=== PATIENT | male | born 1945 | race Caucasian/White ===

== ENCOUNTER 2023-11-27 08:18 | Inpatient (IN) | payer MEDICARE ==
[~2023-11-27] VITALS: Ht 182.9 cm; Wt 73.8 kg
[2023-11-27] VITALS (29 sets, daily range): BP systolic 142–178; BP diastolic 65–89
--- NOTE | 2023-11-27 08:18 | NUR ---
PATIENT ARRIVED TO ER VIA EMS. PATIENT AWAKE, ALERT AND STABLE. NO DISTRESS NOTED. PHYSICIAN NOTIFIED.
[2023-11-27] MEDS ORDERED: METFORMIN HCL1000 MG PO (08:58)
[2023-11-27] MEDS ORDERED: JARDIANCE25 MG PO (08:59)
[2023-11-27] MEDS ORDERED: PRAVASTATIN40 MG PO (09:00)
[2023-11-27] MEDS ORDERED: LISINOPRIL10 MG PO (09:00)
[2023-11-27] MEDS ORDERED: LEVOTHYROXIN75 MC1 PO (09:00)
--- NOTE | 2023-11-27 09:05 | NUR ---
PATIENT AWAKE, ALERT, AND STABLE. NO DISTRESS NOTED. WILL CONTINUE TO MONITOR.
[2023-11-27 09:30] LABS: HEMATOCRIT 43.5 % (39.0-50.0); HEMOGLOBIN 14.7 g/dl (14.0-18.0); IMMATURE GRANULOCYTES 0.4 % (0.0-5.0); MEAN CELL VOLUME 81.2 fL CALC (80.0-100.0); MEAN CORPUSCULAR HGB 27.4 pG CALC (26.0-32.0); MEAN CORPUSCULAR HGB CONC 33.8 g/dL CAL (32.0-36.0); MONO% 6.4 % (2-13); NEUT# 21.26 thou/uL (1.82-7.42); NEUT% 87.2 % (42-76); RED BLOOD COUNT 5.36 mill/uL (4.70-6.10); RED CELL DISTRI WIDTH 14.7 % (11.5-15.5)
[2023-11-27 09:49] LABS: ALBUMIN 3.6 g/dL (3.2-5.0); BILIRUBIN, TOTAL 0.6 mg/dL (0.2-1.3); TOTAL PROTEIN 6.5 g/dL (6.3-8.2)
[2023-11-27 09:59] LABS: CREATININE 6.5 mg/dL (0.7-1.3); POTASSIUM 6.6 mmol/l (3.5-5.1)
--- NOTE | 2023-11-27 10:00 | NUR ---
PT REPPRT RECIEVED FROM MORNING NURSE. CARE IS ACCEPTED. PTS VSS. AT BEDSIDE. PT DENIES ANY NEEDS AT THIS TIME.
[2023-11-27] MEDS ORDERED: CALCIUM GLUCONATE 2 GM in SODIUM CHLORIDE 0.9% 100 ML IV ONE (10:10)
[2023-11-27] MEDS ORDERED: DEXTROSE 10% 500 ML BAG IV ONE (10:10)
[2023-11-27] MEDS ORDERED: INSULIN LISPRO 100 UNITS/ML ML IV ONE (10:10)
[2023-11-27] MEDS ORDERED: SODIUM CHLORIDE 0.9% 1,000 ML IV ONE (10:15)
--- NOTE | 2023-11-27 10:20 | NUR ---
PT HAS A SKIN TEAR TO HIS LEFTT ELBOW REGION THAT IS IN RESULTS FROM HIS FALL TODAY. SKIN TEAR IS CLEAN WITH SALINE AND DUODERM APPLIED TO TEAR. PT TOLERATED WELL AND DENIES ANY NEEDS AT THIS TIME.
--- NOTE | 2023-11-27 11:30 | NUR ---
STRAIGHT CATH PERFORMED ON PATIENT. PT TOLERATED PROCEDURE WELL. 350ML OF URINE COLLECTED. URINE SAMPLE SENT DOWN TO LAB.
[2023-11-27 12:08] LABS: URINE BILIRUBIN - DIPSTICK Negative (NEGATIVE); URINE BLOOD DIPSTICK Moderate (NEGATIVE); URINE GLUCOSE - DIPSTICK 100 mg/dL (NEGATIVE); URINE KETONE Negative (NEGATIVE); URINE LEUK ESTERASE Negative (NEGATIVE); URINE NITRITE - DIPSTICK Negative (Negative); URINE PROTEIN - DIPSTICK Negative (NEG-TRACE); URINE UROBILINOGEN - DIPSTICK 0.2 E.U./dL (0.2)
[2023-11-27 12:17] LABS: URINE COLOR Yellow
[2023-11-27 12:22] LABS: URINE WBC 0-2 WBC/hpf (0-5)
--- NOTE | 2023-11-27 12:22 | NUR ---
PT RESTING IN BED. VSS. NO ACUTE DISTRESS NOTED. AT BEDSIDE. PT EDUACTED ON PLAN OF CARE AND PLAN TO PLACE ALVAREZ CATH. PT STATS UNDERSTANDING.
[2023-11-27 12:23] LABS: URINE SQUAMOUS EPITHELIAL CELL RARE EPI/hpf (0-FEW)
[2023-11-27 12:24] LABS: URINE AMORPH SEDIMENT FEW hpf (NONE-FER)
--- NOTE | 2023-11-27 13:00 | NUR ---
PT RESTING IN BED. VSS. HAS LEFT BEDSIDE. PT IS EDUACTED ON CONTINUED WAIT TIME. PT STATES UNDERSTANDING. PT DENIES ANY NEEDS AT [facility].
--- NOTE | 2023-11-27 14:00 | NUR ---
PT RESTING IN BED. VSS. AT BEDSIDE. PT EDUACTED ON CONTINUED WAIT TIME.
--- NOTE | 2023-11-27 14:48 | NUR ---
PT RSTING IN BED. VSS. NO ACUTE DISTRESS NOTED.
[2023-11-27 15:01] LABS: CREATININE 5.7 mg/dL (0.7-1.3); POTASSIUM 5.9 mmol/l (3.5-5.1)
--- NOTE | 2023-11-27 15:34 | NUR ---
MD IN ROOM WITH PATIENT TO DISCUSS BEING ADMITTED. PT STATES UNDERSTANDIG. PTS VSS. NO ACUTE DISTRESS NOTED.
[2023-11-27] MEDS ORDERED: MAGNESIUM HYDROXIDE 30 ML UDC PO PRN (15:40)
[2023-11-27] MEDS ORDERED: SODIUM CHLORIDE 0.9% 1,000 ML IV PRN (15:40)
[2023-11-27] MEDS ORDERED: ACETAMINOPHEN 325 MG/TAB PO PRN (15:40)
[2023-11-27] MEDS ORDERED: SODIUM ZIRCONIUM CYCLOSILICATE 10 GM PAK PO SCH (16:00)
--- NOTE | 2023-11-27 16:01 | NUR ---
PT LEAVING ER FOR ULTRASOUND OF KIDNEY.
--- NOTE | 2023-11-27 16:15 | NUR ---
REPORT CALL[facility] PT BEING TAKEN UP VIA BED.
--- NOTE | 2023-11-27 16:36 | NUR ---
250ML OF URINE COLLECTED VIA ALVAREZ.
--- NOTE | 2023-11-27 16:40 | NUR ---
PT ARRIVED TO THE UNIT VIA STRETCHER WITH STAFF. IV SITES ARE FREE FROM REDNESS OR EDEMA. HR IS REG,PULSES ARE STRONG X4,ABD IS SOFT WITH ACTIVE BS. BREATH SOUNDS ARE CLEAR, BILATERALLY, ALVAREZ DRAINING YELLOW URINE. CONTINUE TO OBSERVE AND MONITOR.
[2023-11-27] MEDS ORDERED: INSULIN LISPRO 100 UNITS/ML ML SC SCH (17:00)
[2023-11-27] MEDS ORDERED: SODIUM BICARBONATE 150 ML in DEXTROSE 5% 850 ML IV SCH (17:00)
[2023-11-27] MEDS ORDERED: PIPERACILLIN Sodium-Tazobactam 2.25 GM in SODIUM CHLORIDE 0.9% 50 ML IV SCH (18:00)
[2023-11-27 19:13] LABS: CREATININE 4.7 mg/dL (0.7-1.3); POTASSIUM 5.8 mmol/l (3.5-5.1)
--- NOTE | 2023-11-27 19:56 | NUR ---
pt blood sugar was 165 @1945 when checked
--- NOTE | 2023-11-27 20:00 | NUR ---
PATIENT AWAKE ALERT AND ORIENTEDX3. COLOR IS PALE. IVF D5W WITH NABICARB PAENT AND INFUSING VIA RAC SITE AT 100CC/HR. SITE IS HEALTHY AT THIS TIME. SALINE LOCK TO LAC INTACT. ALVAREZ CATH PATENT AND DRAINING JUDITH URINE. LUNGS ARE CLEAR. ABD SOFT WITH ACTIVE BS. LAST BM WAS YESTERDAY. NO PERIPHERAL EDEMA NOTED. PULSES ARE PALPABLE.SAFETY PRECAUTIONS REINFORCED. CALL LIGHT IN REACH.WILL CONT TO MONITOR.
--- NOTE | 2023-11-28 04:00 | NUR ---
PATIENT RESTING IN BED WITH EYES CLOSED. RESPS ARE EVEN AND UNLABORED. ALVAREZ PATENT AND DRAINING JUDITH URINE. IVF ORDERED. CALL LIGHT IN REACH. WILL CONT TO MONITOR.
[2023-11-28 04:33] VITALS: BP 146/71
[2023-11-28] MEDS ORDERED: LEVOTHYROXINE SODIUM 75 MCG/TAB PO SCH (06:00)
[2023-11-28 06:29] LABS: EOS% 0.1 % (0-8); HEMATOCRIT 37.9 % (39.0-50.0); HEMOGLOBIN 13.2 g/dl (14.0-18.0); IMMATURE GRANULOCYTES 0.5 % (0.0-5.0); LYMPH% 8.6 % (15-41); MEAN CELL VOLUME 79.6 fL CALC (80.0-100.0); MEAN CORPUSCULAR HGB 27.7 pG CALC (26.0-32.0); MEAN CORPUSCULAR HGB CONC 34.8 g/dL CAL (32.0-36.0); MONO% 7.6 % (2-13); NEUT# 13.21 thou/uL (1.82-7.42); NEUT% 83.2 % (42-76); RED BLOOD COUNT 4.76 mill/uL (4.70-6.10); RED CELL DISTRI WIDTH 14.7 % (11.5-15.5)
[2023-11-28 06:38] LABS: BILIRUBIN, TOTAL 0.4 mg/dL (0.2-1.3); MAGNESIUM 2.2 mg/dL (1.6-2.3)
[2023-11-28 06:55] LABS: ALBUMIN 2.7 g/dL (3.2-5.0); CREATININE 2.9 mg/dL (0.7-1.3); POTASSIUM 4.4 mmol/l (3.5-5.1); TOTAL PROTEIN 4.9 g/dL (6.3-8.2)
[2023-11-28 07:09] VITALS: BP 155/72
--- NOTE | 2023-11-28 07:30 | NUR ---
SHIFT CHANGE REPORT, PT AWAKE ALERT AND ORIENTED RESTING IN BED, NO C/O DISCOMFORT, IVF INFUSING, STATES HE DOES NOT WANT TO GET OOB TODAY BUT WILL GET OUT IN AM WITH PHYSICAL THERAPIST. INFORMED OF BENEFITES OF GETTING OOB BUT REPEATED HE WILL IN AM.
--- NOTE | 2023-11-28 07:32 | NUR ---
RECEIVED CALL FROM LAB WITH CXRITICAL LAB RESULT OF [id number]. TRENDING DOWN AT THIS TIME. WILL CONT TO MONITOR.
--- NOTE | 2023-11-28 07:33 | NUR ---
PATIENT RESTING IN BED AT THIS TIME-EYES CLOSED AND RESPS ARE EVEN AND UNLABORED. ALVAREZ PATENT AND DRAINING JUDITH URINE. IVF PATENT AND INFUSING RAC SITE AT 100CC/HR. CALL LIGHT IN REACH. WILL CONT TO MANUEL
--- NOTE | 2023-11-28 12:00 | NUR ---
ASSISTED WITH SETTING UP MEAL, CONDITION STABLE.
[2023-11-28 15:20] VITALS: BP 148/67
[2023-11-28 15:25] LABS: POTASSIUM 3.8 mmol/l (3.5-5.1)
[2023-11-28 15:33] LABS: CREATININE 1.9 mg/dL (0.7-1.3)
--- NOTE | 2023-11-28 16:00 | NUR ---
RESTING IN BED, NO NEW COMPLAINS, ALL NEEDS MET/ADDRESSED.
[2023-11-28 18:29] VITALS: BP 143/62
[2023-11-28] MEDS ORDERED: SODIUM CHLORIDE 0.9% 1,000 ML IV SCH (20:20)
[2023-11-28 23:28] VITALS: BP 110/59
[2023-11-29 04:20] VITALS: BP 162/71
[2023-11-29 05:25] VITALS: BP 162/71
[2023-11-29 06:27] LABS: EOS% 0.3 % (0-8); HEMATOCRIT 33.1 % (39.0-50.0); HEMOGLOBIN 11.3 g/dl (14.0-18.0); IMMATURE GRANULOCYTES 0.8 % (0.0-5.0); LYMPH% 20.7 % (15-41); MEAN CELL VOLUME 81.3 fL CALC (80.0-100.0); MEAN CORPUSCULAR HGB 27.8 pG CALC (26.0-32.0); MEAN CORPUSCULAR HGB CONC 34.1 g/dL CAL (32.0-36.0); MONO% 7.5 % (2-13); NEUT# 7.51 thou/uL (1.82-7.42); NEUT% 70.7 % (42-76); RED BLOOD COUNT 4.07 mill/uL (4.70-6.10); RED CELL DISTRI WIDTH 14.5 % (11.5-15.5)
[2023-11-29 06:49] LABS: ALBUMIN 2.4 g/dL (3.2-5.0); ALKALINE PHOSPHATASE 62 u/l (38-126); ANION GAP 7 (6-22 (CALC)); BILIRUBIN, TOTAL 0.5 mg/dL (0.2-1.3); BUN/CREATININE RATIO 31 (12-20 (CALC)); CARBON DIOXIDE 33 mmol/l (22-30); CHLORIDE 102 mmol/l (95-108); CREATININE 1.3 mg/dL (0.7-1.3); GFR FOR AFR.AMER. > 60 ML/MIN (>=60 (CALC)); GFR OTHER RACES 53 ML/MIN (>=60 (CALC)); LIPASE 295 u/l (23-300); MAGNESIUM 1.8 mg/dL (1.6-2.3); POTASSIUM 3.7 mmol/l (3.5-5.1); SGOT/AST 21 u/l (19-48); SODIUM 137 mmol/l (137-146); TOTAL PROTEIN 4.7 g/dL (6.3-8.2)
[2023-11-29 06:51] LABS: BUN 40 mg/dL (8-23)
--- NOTE | 2023-11-29 07:15 | NUR ---
SHIFT CHANGE REPORT, PT AWAKE ALERT AND ORIENTED RESTING IN BED, STATES HE FEELS MUCH BETTER TODAY AND LOOKING FORWARD TO DO PHYSICAL THERAPY TODAY, IVF INFUSING, TELE MONITOR IN PLACE, CALL WHATLEY IN REACH AND BED LOCKED IN LOWEST POSITION.
[2023-11-29 07:32] VITALS: BP 138/70
[2023-11-29] MEDS ORDERED: FINASTERIDE 5 MG/TAB PO SCH (09:00)
[2023-11-29] MEDS ORDERED: TAMSULOSIN HCL 0.4 MG CAP PO SCH (09:00)
[2023-11-29 11:05] VITALS: BP 145/72
[2023-11-29 15:11] VITALS: BP 156/76
[2023-11-29 20:27] VITALS: BP 146/74
--- NOTE | 2023-11-29 21:35 | NUR ---
Assessment complete. Patient alert and oriented x3, hard of hearing. Urinary cath patent, to gravity; clear yan urine noted. Denies pain at this time. No distress noted. Call light within reach.
[2023-11-30] VITALS (11 sets, daily range): BP systolic 143–185; BP diastolic 44–84
[2023-11-30 05:22] LABS: HEMATOCRIT 32.2 % (39.0-50.0); HEMOGLOBIN 10.4 g/dl (14.0-18.0); IMMATURE GRANULOCYTES 1.5 % (0.0-5.0); LYMPH% 19.7 % (15-41); MEAN CELL VOLUME 85.2 fL CALC (80.0-100.0); MEAN CORPUSCULAR HGB 27.5 pG CALC (26.0-32.0); MEAN CORPUSCULAR HGB CONC 32.3 g/dL CAL (32.0-36.0); MONO% 6.5 % (2-13); NEUT# 7.73 thou/uL (1.82-7.42); NEUT% 71.3 % (42-76); RED BLOOD COUNT 3.78 mill/uL (4.70-6.10); RED CELL DISTRI WIDTH 14.8 % (11.5-15.5)
[2023-11-30 05:50] LABS: ALBUMIN 2.4 g/dL (3.2-5.0); ALKALINE PHOSPHATASE 52 u/l (38-126); ANION GAP 5 (6-22 (CALC)); BILIRUBIN, TOTAL 0.3 mg/dL (0.2-1.3); CARBON DIOXIDE 30 mmol/l (22-30); CHLORIDE 104 mmol/l (95-108); CREATININE 0.9 mg/dL (0.7-1.3); GFR FOR AFR.AMER. > 60 ML/MIN (>=60 (CALC)); GFR OTHER RACES > 60 ML/MIN (>=60 (CALC)); SGOT/AST 21 u/l (19-48); SODIUM 134 mmol/l (137-146); TOTAL PROTEIN 4.6 g/dL (6.3-8.2)
[2023-11-30 05:52] LABS: BUN 19 mg/dL (8-23); BUN/CREATININE RATIO 21 (12-20 (CALC))
--- NOTE | 2023-11-30 08:00 | NUR ---
PATIENT ALERT AND ORINTED X3, BREATHING UNLABORED AND EVEN, NO VISUAL SIGNS OF DISTRESS OR DISCOMFORT, IV SITES WAS CLEAN AND INTACT RAC RUNNING ON NS AT 200. TELE MONITORS INTACT AND WORKING, GLUCOSE WAS 188, 1 UNIT WAS ADMINISTERED, ALVAREZ OBSERVED, URINE JUDITH COLOR AND, DENIED HAVING ANY PAIN AT THE MOMENT, DENIED NEEDING ANYTHING AT THE MOMENT, STATED HE WANTED APPLE JUICE, MEDICATION AND PLAN OF CARE WAS REVIEWED,CALL LIGHT WITHIN REACH, VERBALIZED UNDERSTANDING ON HOW TO USE, BED IN LOWEST, WILL CONTINUE TO ROUND,
[2023-11-30] MEDS ORDERED: TAMSULOSIN HCL0.4 MG PO (10:59)
[2023-11-30] MEDS ORDERED: FINASTERIDE5 MG PO (11:00)
--- NOTE | 2023-11-30 11:50 | NUR ---
PATIENT GLUCOSE 232, 3 UNITS GIVEN
--- NOTE | 2023-11-30 12:00 | NUR ---
PATIENT ALERT AND ORINETED X3, IN SEMI PENN POSTION, ROOM AIR, NO VISUAL SIGNS OF DISCOMFORT OR DISTRESS, PATIENT DENIED ANY PAIN AT THE MOMENT, IV SITE CLEAN AND INTACT RUNNING WITH NS AT 100ML, BREATHING UNLABORED AND EVEN, IN ROON, CALL LIGHT WITHIN REACH, VERBALIZED UNDERSTANDING ON HOW TO USE, BED IN LOWEST POSTION, WILL CONTINUE TO MONITOR,TELE MONITOR ON AND INTACT
[2023-11-30] MEDS ORDERED: DOCUSATE CALCIUM 240 MG/CAP PO SCH (13:30)
[2023-11-30] MEDS ORDERED: Polyethylene Glycol 3350 17 GM/PKT PO PRN (13:30)
--- NOTE | 2023-11-30 16:00 | NUR ---
PATIENT ALERT AND OREINTED X3, ROOM AIR, BREATHING UNLABORED AND EVEN, IV SITE CLEAN AND INTACT RUNNING WITH NS AT 125ML, PATIENT DENIED ANY PAIN AT THE MOMENT, DENIED NEEDING ANYTHING AT THIS TIME, STATES HE IS OKAY, ANTONIO OBSERVED WITH URINE OUTPUT IN GOOD STANDING, CALL LIGHT WITHIN REACH, VERALIZED UNDERSTANDING ON HOW TO USE, BED IN LOWEST POSTION, PERSONAL ITEMS ARE WITHIN REACH, WILL CONTINUE TO MONITOR
--- NOTE | 2023-11-30 19:35 | NUR ---
PATIENT RESTING IN BED WITH HOB ELEVATED. ASSESSMENT COMPLETE. ALERT AND ABLE TO MAKE NEEDS KNOWN. NO DISTRESS NOTED. NO COMPLAINTS VOICED. ALVAREZ PATENT DRAINING CLEAR YELLOW URINE. BED REMAINS IN LOW POSITION. CALL WHATLEY IN REACH. BED ALARM ACTIVE.
[2023-11-30] MEDS ORDERED: LABETALOL HCL 20 MG/ 4 ML CARTRG IV PRN (21:00)
[2023-12-01] VITALS (8 sets, daily range): BP systolic 147–187; BP diastolic 73–90
--- NOTE | 2023-12-01 00:45 | NUR ---
PATIENT RESTING IN BED. NO DISTRESS NOTED. NO COMPLAINTS OF PAIN. PATIENT REMOVED IV SITE TO LT ARM. CATHETER INTACT. BED REMAINS IN LOW POSITION. CALL WHATLEY IN REACH. BED ALARM ACTIVE FOR SAFETY.
--- NOTE | 2023-12-01 03:44 | NUR ---
PATIENT REMAINS TURKEY PICKER WHATLEY FREQUENTLY. ABLE TO MAKE NEEDS KOWN. DENIES NEEDING ANYTHING AT THIS TIME. BED REMAINS IN LOW POSITION. CALL WHATLEY IN REACH.
[2023-12-01 05:05] LABS: BASO% 0.1 % (0-3); EOS% 1.7 % (0-8); HEMATOCRIT 32.2 % (39.0-50.0); HEMOGLOBIN 10.6 g/dl (14.0-18.0); IMMATURE GRANULOCYTES 1.2 % (0.0-5.0); LYMPH% 16.9 % (15-41); MEAN CELL VOLUME 84.5 fL CALC (80.0-100.0); MEAN CORPUSCULAR HGB 27.8 pG CALC (26.0-32.0); MEAN CORPUSCULAR HGB CONC 32.9 g/dL CAL (32.0-36.0); MONO% 6.1 % (2-13); NEUT# 9.15 thou/uL (1.82-7.42); RED BLOOD COUNT 3.81 mill/uL (4.70-6.10); RED CELL DISTRI WIDTH 14.9 % (11.5-15.5)
[2023-12-01 05:39] LABS: ALBUMIN 2.5 g/dL (3.2-5.0); ALKALINE PHOSPHATASE 61 u/l (38-126); ANION GAP 7 (6-22 (CALC)); BILIRUBIN, TOTAL 0.3 mg/dL (0.2-1.3); BUN 15 mg/dL (8-23); BUN/CREATININE RATIO 19 (12-20 (CALC)); CARBON DIOXIDE 27 mmol/l (22-30); CHLORIDE 103 mmol/l (95-108); CREATININE 0.8 mg/dL (0.7-1.3); GFR FOR AFR.AMER. > 60 ML/MIN (>=60 (CALC)); GFR OTHER RACES > 60 ML/MIN (>=60 (CALC)); MAGNESIUM 1.5 mg/dL (1.6-2.3); SGOT/AST 24 u/l (19-48); SODIUM 132 mmol/l (137-146)
--- NOTE | 2023-12-01 07:10 | NUR ---
REPORT RECEIVED FROM LOGAN MARIE
--- NOTE | 2023-12-01 08:50 | NUR ---
PT RESTING IN SEMI FOWLERS POSITION,A&O X3;PT DENIES ANY CURRENT PAIN OR DISCOMFORTS, PAIN SCALE AND REPORTING EDUCATED;ASSESSMENT COMPLETED;RESPIRATIONS EVEN AND UNLABORED ON RA;TELE MONITORING IN PLACE;ALVAREZ CATHETER PATENT DRAINING TO GRAVITY WITH EASE;IV SITE PATENT;ACCUCHECK 184, PT COVERED WITH SLIDING SCALE INSULIN PER ORDER;MIRLAX PROVIDED TO ASSIST WITH BOWEL CARE;PT DENIES ANY ADDITIONAL NEEDS AND IS ENCOURAGED TO CALL FOR ASSISTANCE IF NEEDED;FALL PRECAUTIONS IN PLACE WITH BED IN THE LOWEST POSITION AND CALL LIGHT IN REACH;FREQUENT ROUNDS MADE.
--- NOTE | 2023-12-01 11:30 | NUR ---
PT RESTING IN SEMI FOWLERS POSITION;RESPIRATIONS EVEN AND UNLABORED ON RA;PT DENIES ANY CURRENT PAIN OR NEEDS;TELE MONITORING IN PLACE;IV SITE AND ALVAREZ CATHETER PATENT;ACCUCHECK 211, PT COVERED WITH SLIDING SCALE INSULIN PER ORDER;PT DENIES ANY ADDITIONAL QUESTIONS OR NEEDS;FALL PRECAUTIONS REMAIN IN PLACE WITH BED IN THE LOWEST POSITION AND CALL LIGHT IN REACH;FREQUENT ROUNDS MADE.
--- NOTE | 2023-12-01 12:34 | NUR ---
AT BEDSIDE DISCUSSING POC WITH PT.
[2023-12-01] MEDS ORDERED: MAGNESIUM SULFATE HEPTAHYDRATE 50 ML IV SCH (13:00)
[2023-12-01] MEDS ORDERED: LACTULOSE 20 GM/30 ML UDC PO SCH (13:00)
--- NOTE | 2023-12-01 15:45 | NUR ---
PT RESTING IN SEMI FOWLERS POSIITON;RESPIRATIONS REMAIN EVEN AND UNLABORED ON RA;PT DENIES ANY CURRENT PAIN OR NEEDS;TELE MONITORING IN PLACE;IV SITE PATENT;ALVAREZ CATHETER DRAINING TO GRAVITY WITH EASE;PT DENIES ANY ADDITIONAL NEEDS AND IS ENCOURAGED TO CALL FOR ASSISTANCE IF NEEDED;WAITING FOR PT TO HAVE A BM FOR D/C TO REHAB;CALL LIGHT IN REACH;FREQUENT ROUNDS MADE.
[2023-12-02 00:57] VITALS: BP 164/85
[2023-12-02 04:40] VITALS: BP 179/86
[2023-12-02 06:11] VITALS: BP 163/80
--- NOTE | 2023-12-02 07:05 | NUR ---
REPORT RECEIVED FROM LOGAN HERNANDEZ
[2023-12-02 07:30] VITALS: BP 166/87
--- NOTE | 2023-12-02 08:10 | NUR ---
PT RESTING IN SEMI FOWLERS POSITION,A&O X3 WITH NOATAK NOTED;PT ASSISTED TO RECLINER WITH X2 PERSON ASSIST;PT DENIES ANY CURRENT PAIN OR DISCOMFORTS,PAIN SCALE AND REPORTING EDUCATED;RESPIRATIONS EVEN AND UNLABORED ON RA;ACTIVE BOWEL SOUNDS, NO BM NOTED;ALVAREZ CATHETER PATENT, DRAINING CLEAR/YELLOW URINE WITH EASE;TELE MONITORING IN PLACE;IV SITE TO RAC PATENT;ACCUCHECK 251, PT COVERED WITH SLIDING SCALE INSULIN PER ORDER;PT DENIES ANY ADDITIONAL NEEDS AND IS ENCOURAGED TO CALL FOR ASSISTANCE IF NEEDED;FALL PRECAUTIONS IN PLACE WITH CALL LIGHT IN REACH;FREQUENT ROUNDS MADE.
[2023-12-02] MEDS ORDERED: MAGNESIUM SULFATE HEPTAHYDRATE 50 ML IV SCH (09:30)
[2023-12-02 10:34] VITALS: BP 154/89
--- NOTE | 2023-12-02 10:47 | NUR ---
AT BEDSIDE DISCUSSING POC WITH PT
[2023-12-02] MEDS ORDERED: MAGNESIUM CITRATE 296 ML/BTL PO SCH (11:30)
--- NOTE | 2023-12-02 11:30 | NUR ---
PT REMAINS OOB RESTING IN RECLINER;RESPIRATIONS EVEN AND UNLABORED ON RA;PT DENIES ANY CURRENT PAIN OR NEEDS;TELE MONTIORING IN PLACE;IV SITE PATENT;ALVAREZ CATHETER DRAINING WITH EASE;PT MEDICATED WITH MIRLAX AND MAG CITRATE TO HELP ASSIST WITH BOWEL MOVEMENT;ACCUCHECK 287, PT COVERED WITH SLIDING SCALE INSULIN PER ORDER;PT DENIES ANY ADDITIONAL NEEDS AND IS ENCOURAGED TO CALL FOR ASSISTANCE IF NEEDED;FALL PRECAUTIONS REMAIN IN PLACE WITH CALL LIGHT IN REACH;FREQUENT ROUNDS MADE.
[2023-12-02 11:48] LABS: BASO% 0.2 % (0-3); EOS% 1.6 % (0-8); HEMATOCRIT 33.8 % (39.0-50.0); HEMOGLOBIN 10.9 g/dl (14.0-18.0); IMMATURE GRANULOCYTES 2.1 % (0.0-5.0); LYMPH% 13.4 % (15-41); MEAN CELL VOLUME 85.1 fL CALC (80.0-100.0); MEAN CORPUSCULAR HGB 27.5 pG CALC (26.0-32.0); MEAN CORPUSCULAR HGB CONC 32.2 g/dL CAL (32.0-36.0); MONO% 5.5 % (2-13); NEUT# 11.38 thou/uL (1.82-7.42); NEUT% 77.2 % (42-76); RED BLOOD COUNT 3.97 mill/uL (4.70-6.10); RED CELL DISTRI WIDTH 14.7 % (11.5-15.5)
[2023-12-02] MEDS ORDERED: Polyethylene Glycol 3350 17 GM/PKT PO SCH (12:00)
[2023-12-02 12:11] LABS: ALKALINE PHOSPHATASE 62 u/l (38-126); BILIRUBIN, TOTAL 0.2 mg/dL (0.2-1.3); BUN 23 mg/dL (8-23); BUN/CREATININE RATIO 27 (12-20 (CALC)); CARBON DIOXIDE 29 mmol/l (22-30); CHLORIDE 99 mmol/l (95-108); CREATININE 0.8 mg/dL (0.7-1.3); GFR FOR AFR.AMER. > 60 ML/MIN (>=60 (CALC)); GFR OTHER RACES > 60 ML/MIN (>=60 (CALC)); SGOT/AST 35 u/l (19-48); SODIUM 132 mmol/l (137-146); TOTAL PROTEIN 5.6 g/dL (6.3-8.2)
[2023-12-02 12:13] LABS: ANION GAP 9 (6-22 (CALC)); POTASSIUM 5.1 mmol/l (3.5-5.1)
--- NOTE | 2023-12-02 13:56 | NUR ---
XRAY AT BEDSIDE
--- NOTE | 2023-12-02 15:50 | NUR ---
PT OOB ON BEDSIDE COMMODE ATTEMPTING TO HAVE A BOWEL MOVEMENT;RESPIRATIONS EVEN AND UNLABORED ON RA;PT DENIES ANY CURRENT PAIN OR DISCOMFORTS;TELE MONITORING IN PLACE;IV SITE PATENT;ALVAREZ DRAINING TO GRAVITY WITH EASE;PT DENIES ANY ADDITIONAL NEEDS AND IS ENCOURAGED TO CALL FOR ASSISTANCE IF NEEDED;FALL PRECAUTIONS REMAIN IN PLACE WITH CALL LIGHT IN REACH;FREQUENT ROUNDS MADE.
[2023-12-02] MEDS ORDERED: BISACODYL 10 MG SUPP RE SCH (16:00)
--- NOTE | 2023-12-02 16:50 | NUR ---
PT HAD XL LOOSE/BROWN BM AND WAS ASISSTED BACK TO BED WITH X3 ASISST. NOTIFIED.
[2023-12-02 17:34] LABS: ANION GAP 11 (6-22 (CALC)); BUN 24 mg/dL (8-23); BUN/CREATININE RATIO 25 (12-20 (CALC)); CARBON DIOXIDE 29 mmol/l (22-30); CHLORIDE 98 mmol/l (95-108); GFR FOR AFR.AMER. > 60 ML/MIN (>=60 (CALC)); GFR OTHER RACES > 60 ML/MIN (>=60 (CALC)); POTASSIUM 4.9 mmol/l (3.5-5.1); SODIUM 133 mmol/l (137-146)
[2023-12-02 19:21] VITALS: BP 123/65
[2023-12-03 00:09] VITALS: BP 142/74
[2023-12-03 04:33] VITALS: BP 158/76
[2023-12-03 07:24] VITALS: BP 125/68
[2023-12-03 08:14] VITALS: BP 125/68
[2023-12-03 10:25] VITALS: BP 128/65
[2023-12-03 10:43] VITALS: BP 128/65
[2023-12-03] MEDS ORDERED: METOPROLOL TARTRATE 50 MG/TAB PO SCH (13:00)
--- NOTE | 2023-12-03 14:50 | NUR ---
Discharge instructions given. Patient verbalizes understanding of same. Discharged in stable condition [facility]. All belongings sent with pt. IV removed, catheter intact, site WNL.
== END 2023-12-03 14:57 | DRG 683 ==
LOC: ED 08:18 → ED-I 15:20 → ED 15:42 → MS2 15:43
PROVIDERS: Family Medicine; Nurse Practitioner Family; Student in an Organized Health Care Education/Training Program; ADMIT Student in an Organized Health Care Education/Training Program; ATTEND Student in an Organized Health Care Education/Training Program
PROC: 0T9B70Z Drainage of Bladder with Drainage Device, Via Natural or Artificial Opening (ICD-10-PCS; principal; 2023-11-27)
DX: N17.0 Acute kidney failure with tubular necrosis (principal); E87.1 Hypo-osmolality and hyponatremia; E87.20 Acidosis, unspecified; I95.9 Hypotension, unspecified; E86.9 Volume depletion, unspecified; E86.0 Dehydration; D72.829 Elevated white blood cell count, unspecified; E87.5 Hyperkalemia; K59.00 Constipation, unspecified; K86.89 Other specified diseases of pancreas; I10 Essential (primary) hypertension; E11.9 Type 2 diabetes mellitus without complications; N40.0 Benign prostatic hyperplasia without lower urinary tract symptoms; E03.9 Hypothyroidism, unspecified; Z79.84 Long term (current) use of oral hypoglycemic drugs; Z87.442 Personal history of urinary calculi; Z20.822 Contact with and (suspected) exposure to COVID-19
CPT/HCPCS: J3475

== ENCOUNTER 2024-04-09 00:08 | Inpatient (IN) | payer MEDICARE ==
[2024-04-09] VITALS (26 sets, daily range): BP systolic 98–140; BP diastolic 53–71
[~2024-04-09] VITALS: Ht 185.4 cm; Wt 67.1 kg
[~2024-04-09 00:08] MED LIST: ACETAMINOPHEN325 MG PO; AMOXICILLIN500 M2 PO; CLARITHROMYCIN500 MG PO; DULCOLAX10 MG RE; FINASTERIDE5 MG PO; GABAPENTIN100 MG PO; JARDIANCE10 MG PO; JARDIANCE25 MG PO; LEVOTHYROXIN75 MC1 PO; LISINOPRIL10 MG PO; METFORMIN HCL1000 MG PO; MILK OF MAGNES7.75 % PO; MIRALAX17 GM PO; PRAVASTATIN40 MG PO; PROTONIX40 M2 PO; TAMSULOSIN HCL0.4 MG PO
--- NOTE | 2024-04-09 00:15 | NUR ---
PT TO RM 6 VIA EMS
[2024-04-09] MEDS ORDERED: SODIUM CHLORIDE 0.9% 1,000 ML IV ONE (00:30)
[2024-04-09] MEDS ORDERED: TAMSULOSIN0.4 MG PO (00:33)
[2024-04-09] MEDS ORDERED: FIBER TABS625 MG (00:35)
[2024-04-09] MEDS ORDERED: ZESTRIL10 M1 PO (00:35)
[2024-04-09] MEDS ORDERED: PROTONIX40 M2 PO (00:36)
[2024-04-09] MEDS ORDERED: REMERON7.5 MG PO (00:36)
[2024-04-09] MEDS ORDERED: ZOFRAN4 MG/TAB PO (00:37)
[2024-04-09] MEDS ORDERED: STOOL SOFTENER100 M1 PO (00:37)
[2024-04-09] MEDS ORDERED: NOVOLOG FL100 UNIT/M (00:38)
--- NOTE | 2024-04-09 01:15 | NUR ---
PATIENT RESTING IN BED, AT BEDSIDE.
[2024-04-09 01:21] LABS: HEMATOCRIT 36.7 % (39.0-50.0); HEMOGLOBIN 11.4 g/dl (14.0-18.0); IMMATURE GRANULOCYTES 1.7 % (0.0-5.0); MEAN CORPUSCULAR HGB 24.6 pG CALC (26.0-32.0); MEAN CORPUSCULAR HGB CONC 31.1 g/dL CAL (32.0-36.0); PLATELET COUNT 314 thou/uL (130-400); RED BLOOD COUNT 4.63 mill/uL (4.70-6.10)
[2024-04-09 01:27] LABS: MEAN CELL VOLUME 79.3 fL CALC (80.0-100.0)
[2024-04-09 01:28] LABS: MANUAL DIFFERENTIAL YES
[2024-04-09 01:48] LABS: ALBUMIN 3.2 g/dL (3.2-5.0); CREATININE 1.7 mg/dL (0.7-1.3); POTASSIUM 4.1 mmol/l (3.5-5.1); TOTAL PROTEIN 5.9 g/dL (6.3-8.2)
[2024-04-09 01:49] LABS: URINE BILIRUBIN - DIPSTICK Negative (NEGATIVE); URINE BLOOD DIPSTICK Large (NEGATIVE); URINE GLUCOSE - DIPSTICK >=1000 mg/dL (NEGATIVE); URINE KETONE 15 mg/dL (NEGATIVE); URINE NITRITE - DIPSTICK Negative (Negative); URINE PH 5.5 (4.5-8.0); URINE PROTEIN - DIPSTICK 100 mg/dL (NEG-TRACE); URINE SPECIFIC GRAVITY 1.025; URINE UROBILINOGEN - DIPSTICK 0.2 E.U./dL (0.2)
[2024-04-09 01:49] LABS: BILIRUBIN, TOTAL 0.9 mg/dL (0.2-1.3)
[2024-04-09 01:51] LABS: URINE COLOR Yellow; URINE LEUK ESTERASE Large (NEGATIVE)
[2024-04-09 01:51] LABS: BAND 1 % (0-8)
[2024-04-09 02:06] LABS: URINE BACTERIA MANY hpf; URINE MUCUS FEW hpf (NONE-FEW); URINE RBC 25-50 RBC/hpf (0-5); URINE SQUAMOUS EPITHELIAL CELL FEW EPI/hpf (0-FEW); URINE WBC 20-50 WBC/hpf (0-5); URINE YEAST MANY hpf
[2024-04-09] MEDS ORDERED: INSULIN REGULAR (HUMAN) 100 UNIT/ML INJ IV ONE (02:10)
--- NOTE | 2024-04-09 03:00 | NUR ---
PATIENT SLEEPING, RESPIRATIONS EVEN AND UNLABORED. VSS
--- NOTE | 2024-04-09 04:25 | NUR ---
PATIENT NOTIFIED HE WAS ACCEPTED FOR ADMISSION.
--- NOTE | 2024-04-09 04:57 | NUR ---
REPORT GIVEN TO Jessica RAMSEY RN
--- NOTE | 2024-04-09 05:15 | NUR ---
RECEIVED FROM ER, ALERT ORIENTED X3. RESP EVEN AND UNLABORED. SKIN IN POOR CONDITION. LOTS OF DISCOLORED AREAS AND ABRASIONS. TELE CURRENTLY ST 92. DENIES PAIN OR DISCOMFORT. ADMISSION ASSESMENT COMPLETED.
[2024-04-09] MEDS ORDERED: ACETAMINOPHEN 325 MG/TAB PO PRN (05:20)
[2024-04-09] MEDS ORDERED: SODIUM CHLORIDE 0.9% 1,000 ML IV PRN (05:25)
--- NOTE | 2024-04-09 05:27 | NUR ---
PATIENT TRASNPORTED TO MED SURG ROOM 272
[2024-04-09] MEDS ORDERED: DEXTROSE 250 ML IV PRN (05:35)
[2024-04-09] MEDS ORDERED: LEVOTHYROXINE SODIUM 75 MCG/TAB PO SCH (06:00)
[2024-04-09 07:00] LABS: HEMATOCRIT 36.1 % (39.0-50.0); HEMOGLOBIN 11.7 g/dl (14.0-18.0); IMMATURE GRANULOCYTES 1.6 % (0.0-5.0); MEAN CELL VOLUME 76.3 fL CALC (80.0-100.0); MEAN CORPUSCULAR HGB 24.7 pG CALC (26.0-32.0); MEAN CORPUSCULAR HGB CONC 32.4 g/dL CAL (32.0-36.0); PLATELET COUNT 344 thou/uL (130-400); RED BLOOD COUNT 4.73 mill/uL (4.70-6.10)
[2024-04-09] MEDS ORDERED: INSULIN LISPRO 100 UNITS/ML ML SC SCH (07:00)
--- NOTE | 2024-04-09 07:15 | NUR ---
PT LAYING IN BED RESTING WITH HIS EYES CLOSED, AROUSES EASILY TO VERBAL STIMULI, A&O X3, PUPILS PERRL, ABD SOFT AND SLIGHTLY DISTENDED, ACTIVE BOWEL SOUNDS, STRONG RADIAL PULSES, WEAK PEDAL PULSES, 20G LFA IV WITH FLUIDS INFUSING AT PRESCIBED RATE, PT HAS MULTIPLE AREAS ON HIS ARMS, KNEES, AND SIDE OF HIS FACE WITH BRUSING, SKIN TEARS, AND SCRATHCES FROM HIS FALL AT HOME, PT COMPLAINS OF PAIN IN HIS FEET DOES NOT WANT ANYTHING FOR PAIN AT THIS TIME, PT ASSISTED WITH REPOSITIONING. SAFETY MEASURES REINFORCED, CALL WHATLEY WITHIN REACH
[2024-04-09 07:19] LABS: CREATININE 1.8 mg/dL (0.7-1.3); POTASSIUM 3.7 mmol/l (3.5-5.1)
[2024-04-09 07:20] LABS: MAGNESIUM 1.2 mg/dL (1.6-2.3)
[2024-04-09 07:36] LABS: MANUAL DIFFERENTIAL YES
--- NOTE | 2024-04-09 07:45 | NUR ---
pt blood sugar was 143 @0610
[2024-04-09 07:48] LABS: PLATELET ESTIMATE NORMAL
--- NOTE | 2024-04-09 08:05 | NUR ---
PT ASSISTED WITH GETTING SETUP FOR BREAKFAST, PT VERBALIZED NO OTHER NEEDS AT THIS TIME, SAFETY MEASURES REINFORCED, PT REMINDED TO CALL FOR ASSISTANCE, CALL WHATLEY WITHIN REACH
[2024-04-09] MEDS ORDERED: MAGNESIUM SULFATE HEPTAHYDRATE 100 ML IV SCH (09:00)
[2024-04-09] MEDS ORDERED: FINASTERIDE 5 MG/TAB PO SCH (09:00)
[2024-04-09] MEDS ORDERED: PANTOPRAZOLE SODIUM Sesquihydr 40 MG/TAB PO SCH (09:00)
[2024-04-09] MEDS ORDERED: CEFEPIME HYDROCHLORIDE 2 GM in SODIUM CHLORIDE 0.9% 100 ML IV SCH (11:00)
--- NOTE | 2024-04-09 11:03 | NUR ---
pt glucose was 268 @1040
--- NOTE | 2024-04-09 11:16 | NUR ---
nurse jj made aware of pt bp of 100/61 @1045
--- NOTE | 2024-04-09 12:00 | NUR ---
PT ASSISTED WITH GETTING SETUP FOR LUNCH, PT SITTING UP IN THE BED, DENIES ANY NEEDS AT THIS TIME, CALL WHATLEY WITHIN REACH
--- NOTE | 2024-04-09 13:30 | NUR ---
PT ASSISTED WITH 2 PERSON ASSISTANCE TO AMBULATE TO THE WC, PT TO RADIOLOGY VIA WC
--- NOTE | 2024-04-09 14:30 | NUR ---
PT RETURNED TO THE UNIT VIA WC FROM RADIOLOGY, PT ASSISTED WITH AMBULATING BACK TO BED, 1 PERSON ASSISTANCE NEED, PT AMBULATED WITH AN UNSTEADY GAIT, PT REMINDED TO CALL FOR ASSISTANCE, CALL WHATLEY WITHIN REACH
--- NOTE | 2024-04-09 16:35 | NUR ---
pt glucose was 206 @1620
--- NOTE | 2024-04-09 17:55 | NUR ---
PT LAYING IN BED RESTING, NO NEEDS AT THIS TIME, CALL WHATLEY WITHIN REACH
[2024-04-09] MEDS ORDERED: ENOXAPARIN SODIUM 40 MG/0.4 ML SYR SC SCH (21:00)
[2024-04-09] MEDS ORDERED: GABAPENTIN 100 MG/CAP PO SCH (21:00)
--- NOTE | 2024-04-09 23:26 | NUR ---
SCHEDULED IV ABT HUNG ORDERED. PATIENT REQUESTED A SNACK AND PROVIDED. DENIES NEEDING ANYTHING ELSE AT THIS TIME. BED REMAINS IN LOW POSITION. CALL WHATLEY IN REACH.
[2024-04-10] MEDS ORDERED: cefTRIAXone SODIUM 2 GM in SODIUM CHLORIDE 0.9% 100 ML IV SCH
--- NOTE | 2024-04-10 03:23 | NUR ---
PATIENT REMAINS RESTING IN BED. PREFERS TO LAY FLAT IN BED. NO DISTRESS NOTED. NO SIGNS OF PAIN. ALVAREZ REMAINS DRAINING CLEAR YELLOW URINE. BED REMAINS IN LOW POSITION. CALL WHATLEY IN REACH.
[2024-04-10 03:40] VITALS: BP 129/73
[2024-04-10 05:52] LABS: EOS% 0.1 % (0-8); HEMATOCRIT 32.9 % (39.0-50.0); HEMOGLOBIN 10.8 g/dl (14.0-18.0); IMMATURE GRANULOCYTES 0.5 % (0.0-5.0); LYMPH% 3.8 % (15-41); MEAN CELL VOLUME 76.7 fL CALC (80.0-100.0); MEAN CORPUSCULAR HGB 25.2 pG CALC (26.0-32.0); MEAN CORPUSCULAR HGB CONC 32.8 g/dL CAL (32.0-36.0); MONO% 6.1 % (2-13); NEUT# 25.15 thou/uL (1.82-7.42); NEUT% 89.5 % (42-76); RED BLOOD COUNT 4.29 mill/uL (4.70-6.10); RED CELL DISTRI WIDTH 16.2 % (11.5-15.5)
[2024-04-10 06:04] LABS: ALBUMIN 2.4 g/dL (3.2-5.0); BILIRUBIN, TOTAL 0.5 mg/dL (0.2-1.3); CREATININE 1.5 mg/dL (0.7-1.3); MAGNESIUM 2.1 mg/dL (1.6-2.3); POTASSIUM 3.6 mmol/l (3.5-5.1)
[2024-04-10 06:40] VITALS: BP 129/73
--- NOTE | 2024-04-10 07:48 | NUR ---
PATIENT A/O X3; ROOM AIR; BREATHING UNLABORED AND EVEN; DENIED ANY PAIN; DENIED ANYT N/D/V AT THIS TIME; STATES HE SLEPT"FAIR"; NO S/S OF DISTRESS; IV SITE CLEAN AND INTACT RUNNING WITH NS @125; ALVAREZ WORKING WITH NO ISSUES; DENIED NEEDING ANYTHING; CALL LIGHT WITHIN REACH,VERBALIZED UNDERSTANDING ON HOW TO USE, PERSONAL ITEMS WITHIN REACH, BED IN LOWEST POSTION
--- NOTE | 2024-04-10 08:10 | NUR ---
Preliminary blood culture results of 1/4 blood cultures growing gram negative mohsen called to Dr Rasmussen. No new orders at this time.
[2024-04-10 10:33] VITALS: BP 115/60
--- NOTE | 2024-04-10 13:34 | NUR ---
PATIENT A/O X3; ROOM AIR; BREATHING UNLABORED AND EVEN; DENIED ANY PAIN; DENID NEEDING ANYTHING; LAYING IN BED SEMI PENN POSTION; IN ROOM WITH PATIENT; ALVAREZ WORKING WITH NO ISSUES; TELE LEADS ARE ATTACHED WITH NO ISSUES; IV SITE CLEAN AND INTACT RUNNING WITH NS; DENIED NEEDING ANYTHING; MEDICATION REVIWED; CALL LIGHT WITHIN REACH,VERBALIZED UNDERSTANDING ON HOW TO USE,PERSONAL ITEMS WITHIN REACH, BED IN LOWEST POSTION
[2024-04-10 15:53] VITALS: BP 131/72
--- NOTE | 2024-04-10 16:08 | NUR ---
PATIENT A/O X3L ROOM AIR; BREATHING UNLABORED AND EVEN; DENIED ANY PAIN; DENIED ANY N/D/V AT THIS TIME; IV SITE CLEAN AND INTACT RUNNING WITH NS; MEDICATION REVIEWED' ALVAREZ BAG WORKING WITH NO ISSUES; TELE LEADS ARE ATTACHED AND WORKING WITH NO ISSUES; LAYING SEMI PENN IN BED WITH NO ISSUES; CALL LIGHT WITHIN REACH,VERBALIZED UNDERSTANDING ON HOW TO USE, PERSONAL ITEMS WITHIN REACH, BED IN LOWEST POSTION
[2024-04-10 18:26] VITALS: BP 138/68
--- NOTE | 2024-04-10 20:00 | NUR ---
RECEIVED REPORT FROM NURSE MEYER. PATINET RESTING IN BED, PATINET HARD OF HEARING, PLEASANT, IV NS @ 125CC/HR INFUSING WELL ON LFA, ON TELEMETRY, PATIENT DENIES PAIN AT THIS TIME, HAS INDWELLING ALVAREZ CATHETER DRAINING YELLOW CLOUDY URINE, PATINET NOT IN DISTRESS, CALL LIGHT IN REACHED.
[2024-04-10 23:18] VITALS: BP 133/72
--- NOTE | 2024-04-11 | NUR ---
PATINET RSETING IN BED, NOT IN DISTRESS, BRAETHING EVEN UNLABORED, DENIES PAIN AT THSI TIME, CALL LIGHT IN REACHED.
[2024-04-11 03:45] VITALS: BP 154/79
[2024-04-11 04:07] VITALS: BP 154/79
--- NOTE | 2024-04-11 04:26 | NUR ---
PATINET AWAKE, EATING SNACK, BREATHING EVEN UNLABORED NOT IN DISTRESS, CALL LIGHT IN REACHED.
[2024-04-11 05:08] LABS: BASO% 0.1 % (0-3); EOS% 0.7 % (0-8); HEMATOCRIT 31.5 % (39.0-50.0); HEMOGLOBIN 10.5 g/dl (14.0-18.0); IMMATURE GRANULOCYTES 0.4 % (0.0-5.0); LYMPH% 9.4 % (15-41); MEAN CELL VOLUME 76.6 fL CALC (80.0-100.0); MEAN CORPUSCULAR HGB 25.5 pG CALC (26.0-32.0); MEAN CORPUSCULAR HGB CONC 33.3 g/dL CAL (32.0-36.0); MONO% 6.1 % (2-13); NEUT# 13.17 thou/uL (1.82-7.42); NEUT% 83.3 % (42-76); RED BLOOD COUNT 4.11 mill/uL (4.70-6.10); RED CELL DISTRI WIDTH 16.3 % (11.5-15.5)
[2024-04-11 05:09] LABS: ALBUMIN 2.3 g/dL (3.2-5.0); BILIRUBIN, TOTAL 0.4 mg/dL (0.2-1.3); CREATININE 1.1 mg/dL (0.7-1.3); MAGNESIUM 1.9 mg/dL (1.6-2.3); POTASSIUM 3.7 mmol/l (3.5-5.1); TOTAL PROTEIN 4.9 g/dL (6.3-8.2)
[2024-04-11 06:48] VITALS: BP 134/79
--- NOTE | 2024-04-11 08:45 | NUR ---
PATEINT A/O X3; ROOM AIR; BREATHING UNLABORED AND EVEN; DENIED ANY PAIN; DENIED NEEDING ANYTHING; DENIED N/D/V AT THIS TIME; IV SITE CLEAN AND INTACT RUNNING WITH NS @100; ASKED IF WE CAN CHANGE IV SITE PATIENT REFUSED, CHANTEL ANRP WAS NOTFIED; EDUCATED ON THE RISK OF NOT CHANGING IV SITE; TELE LEADS ARE ATTACHED AND WORKING WITH NO ISSUES; ALVAREZ BAG WORKING WITH NO ISSUES; CALL LIGHT WITHIN REACH,VERBALIZED UNDERSTANDING ON HOW TO USE,PERONAL ITEMS WITHIN REACH,BED IN LWOEST POSTION, BED ALARM ACTIVATED
[2024-04-11] MEDS ORDERED: cefTRIAXone SODIUM 2 GM in SODIUM CHLORIDE 0.9% 100 ML IV SCH (09:00)
[2024-04-11] MEDS ORDERED: METOPROLOL TARTRATE 25 MG/TAB PO SCH (09:00)
[2024-04-11 11:06] VITALS: BP 136/81
--- NOTE | 2024-04-11 12:10 | NUR ---
PATEINT A/O X3; ROOM AIR; BREATHING UNLABORED AND EVEN; DENIED ANY PAIN; DENIED ANY N/D/V AT THIS TIME; DENIED NEEDING ANYTHING AT THIS TIME; IN ROOM WITH PATIENT; IV SITE CLEAN AND INTACT RUNNING WITH NS @100; TELE LEADS ARE ATTACHED AND WORKING WITH NO ISSUES; MEDICATION REVIEWED; CALL LIGHT WITHIN REACH,VERBALIZED UNDERSTANDING ON HOW TO USE, PERSONAL ITEMS WITHIN REACH, BED IN LOWEST POSTION; BED ALARM ACTIVATED
--- NOTE | 2024-04-11 15:41 | NUR ---
PATIENT GOT A SKIN TEAR FROM SOFTWARE PACKAGER TAKING OF GUARD FROM IV FOR TAKING A SHOWER; PICTURE IN CHART
--- NOTE | 2024-04-11 16:25 | NUR ---
PATEINT A/O X3; ROOM AIR; BREATHING UNLABORED AND EVEN; DENIED ANY PAIN; DENIED NEEDING ANYTHING; DENIED ANY N/D/V AT THIS TIME; PATIENT LAYING SEMI PENN IN BED; NO S/S OF DISTRESS; TELE LEADS ARE ATTACHED AND WORKING WITH NO ISSUES; PATIENT HAD SHOWER TODAY; MEDICATION WAS REVIWED; IV SITE CLEAN AND INTCAT RUNNING WITH NS; CALL LIGHT WITHIN REACH,VERBALIZED UNDERSTANDING ON HOW TO USE, PERSONAL ITEMS WITHIN REACH, BED IN LOWEST POSTION
[2024-04-11 17:07] VITALS: BP 161/89
[2024-04-11 18:46] VITALS: BP 140/77
[2024-04-12 00:37] VITALS: BP 147/82
[2024-04-12 04:30] VITALS: BP 132/71
[2024-04-12 06:24] LABS: BASO% 0.1 % (0-3); HEMATOCRIT 29.4 % (39.0-50.0); HEMOGLOBIN 9.5 g/dl (14.0-18.0); IMMATURE GRANULOCYTES 1.4 % (0.0-5.0); LYMPH% 15.5 % (15-41); MEAN CELL VOLUME 77.8 fL CALC (80.0-100.0); MEAN CORPUSCULAR HGB 25.1 pG CALC (26.0-32.0); MEAN CORPUSCULAR HGB CONC 32.3 g/dL CAL (32.0-36.0); NEUT# 7.67 thou/uL (1.82-7.42); RED BLOOD COUNT 3.78 mill/uL (4.70-6.10); RED CELL DISTRI WIDTH 16.5 % (11.5-15.5)
[2024-04-12 06:32] LABS: ALBUMIN 2.2 g/dL (3.2-5.0); CREATININE 1.1 mg/dL (0.7-1.3); MAGNESIUM 1.7 mg/dL (1.6-2.3); POTASSIUM 3.9 mmol/l (3.5-5.1); TOTAL PROTEIN 4.6 g/dL (6.3-8.2)
[2024-04-12 06:38] LABS: BILIRUBIN, TOTAL 0.2 mg/dL (0.2-1.3)
[2024-04-12 06:54] VITALS: BP 131/74
--- NOTE | 2024-04-12 08:11 | NUR ---
Pt resting in bed, sitting up ,eating breakfast. Pt requesting medicaine to assist in BM. Physicin notified. No distress, no other complaints.
[2024-04-12] MEDS ORDERED: BISACODYL 10 MG SUPP PR SCH (09:00)
[2024-04-12] MEDS ORDERED: LACTULOSE 20 GM/30 ML UDC PO SCH (09:30)
[2024-04-12 10:59] VITALS: BP 150/75
[2024-04-12] MEDS ORDERED: CEFTRIAXONE2 GM IJ (12:02)
[2024-04-12] MEDS ORDERED: LOPRESSOR25 MG PO (12:11)
--- NOTE | 2024-04-12 14:50 | NUR ---
Discharge instructions given. Patient verbalizes understanding of same. Discharged in stable condition via Wheelchair to *Other with staff. All belongings sent with pt. Tele monitor removed and placed at nurses station.
== END 2024-04-12 14:17 | DRG 872 ==
LOC: ED 00:08 → ED-I 04:10 → ED 04:24 → MS2 04:25
PROVIDERS: Family Medicine; Nurse Practitioner Family; ADMIT Student in an Organized Health Care Education/Training Program; ATTEND Student in an Organized Health Care Education/Training Program
DX: A41.59 Other Gram-negative sepsis (principal); N39.0 Urinary tract infection, site not specified; I47.10 Supraventricular tachycardia, unspecified; N17.9 Acute kidney failure, unspecified; T83.518A Infection and inflammatory reaction due to other urinary catheter, initial encounter; R65.20 Severe sepsis without septic shock; E83.42 Hypomagnesemia; I48.0 Paroxysmal atrial fibrillation; S80.212A Abrasion, left knee, initial encounter; S80.211A Abrasion, right knee, initial encounter; S00.81XA Abrasion of other part of head, initial encounter; S40.022A Contusion of left upper arm, initial encounter; S40.021A Contusion of right upper arm, initial encounter; I10 Essential (primary) hypertension; N40.0 Benign prostatic hyperplasia without lower urinary tract symptoms; E03.9 Hypothyroidism, unspecified; Y84.6 Urinary catheterization as the cause of abnormal reaction of the patient, or of later complication, without mention of misadventure at the time of the procedure; W18.30XA Fall on same level, unspecified, initial encounter; Y92.009 Unspecified place in unspecified non-institutional (private) residence as the place of occurrence of the external cause; Z96.0 Presence of urogenital implants; Z79.84 Long term (current) use of oral hypoglycemic drugs; Z79.4 Long term (current) use of insulin; Z20.822 Contact with and (suspected) exposure to COVID-19
CPT/HCPCS: J0692; J1650; J3475; Q9967

== ENCOUNTER 2024-08-26 08:48 | Observation (INO) | payer MEDICARE ==
[~2024-08-26] VITALS: Ht 182.9 cm; Wt 62.4 kg
[2024-08-26] VITALS (21 sets, daily range): BP systolic 125–156; BP diastolic 71–89
[~2024-08-26 08:48] MED LIST changes: +AMOX/K CLAV875 M1 PO; +BACTRIM DS1 TAB PO; +CEFTRIAXONE2 GM IJ; +FIBER TABS625 MG; +LOPRESSOR25 MG PO; +NOVOLOG FL100 UNIT/M; +REMERON7.5 MG PO; +STOOL SOFTENER100 M1 PO; +TAMSULOSIN0.4 MG PO; +ZESTRIL10 M1 PO; +ZOFRAN4 MG/TAB PO
[2024-08-26] MEDS ORDERED: ONDANSETRON HCl 4 MG/2 ML SDV IV ONE (09:35)
[2024-08-26] MEDS ORDERED: SODIUM CHLORIDE 0.9% 1,000 ML IV ONE (09:35)
[2024-08-26 09:52] LABS: URINE BLOOD DIPSTICK Negative (NEGATIVE); URINE GLUCOSE - DIPSTICK Negative (NEGATIVE); URINE KETONE Negative (NEGATIVE); URINE NITRITE - DIPSTICK Negative (Negative); URINE PH 5.5 (4.5-8.0); URINE PROTEIN - DIPSTICK 30 mg/dL (NEG-TRACE); URINE UROBILINOGEN - DIPSTICK 0.2 E.U./dL (0.2)
[2024-08-26 09:53] LABS: URINE COLOR Dark yellow; URINE LEUK ESTERASE Small (NEGATIVE)
[2024-08-26 09:54] LABS: BASO% 0.1 % (0-3); EOS% 2.4 % (0-8); IMMATURE GRANULOCYTES 0.7 % (0.0-5.0); LYMPH% 9.5 % (15-41); MEAN CORPUSCULAR HGB 24.8 pG CALC (26.0-32.0); MEAN CORPUSCULAR HGB CONC 31.5 g/dL CAL (32.0-36.0); MONO% 6.8 % (2-13); NEUT# 15.34 thou/uL (1.82-7.42); NEUT% 80.5 % (42-76); RED BLOOD COUNT 4.71 mill/uL (4.70-6.10); RED CELL DISTRI WIDTH 14.2 % (11.5-15.5)
[2024-08-26 09:55] LABS: HEMATOCRIT 37.2 % (39.0-50.0); HEMOGLOBIN 11.7 g/dl (14.0-18.0)
[2024-08-26 10:01] LABS: URINE BACTERIA FEW hpf; URINE MUCUS MODERATE hpf (NONE-FEW); URINE YEAST MODERATE hpf
[2024-08-26 10:02] LABS: URINE HYALINE CAST FEW lpf (NONE-RARE)
[2024-08-26 10:04] LABS: CREATININE 1.3 mg/dL (0.7-1.3)
[2024-08-26 10:15] LABS: ALBUMIN 3.5 g/dL (3.2-5.0); BILIRUBIN, TOTAL 0.6 mg/dL (0.2-1.3); POTASSIUM 4.9 mmol/l (3.5-5.1); TOTAL PROTEIN 6.8 g/dL (6.3-8.2)
[2024-08-26] MEDS ORDERED: MAGNESIUM HYDROXIDE 30 ML UDC PO PRN (12:20)
[2024-08-26] MEDS ORDERED: ACETAMINOPHEN 325 MG/TAB PO PRN (12:20)
[2024-08-26] MEDS ORDERED: SODIUM CHLORIDE 0.9% 1,000 ML IV PRN (12:20)
[2024-08-26] MEDS ORDERED: LOPRESSOR 550 MG/TAB PO (13:23)
[2024-08-26] MEDS ORDERED: ONDANSETRON HCl 4 MG/2 ML SDV IV PRN (13:30)
[2024-08-26] MEDS ORDERED: LISINOPRIL 10 MG/TAB PO SCH (14:00)
[2024-08-26] MEDS ORDERED: DEXTROSE 250 ML IV PRN (14:10)
[2024-08-26] MEDS ORDERED: INSULIN LISPRO 100 UNITS/ML ML SC SCH (17:00)
[2024-08-26] MEDS ORDERED: GABAPENTIN 100 MG/CAP PO SCH (21:00)
[2024-08-26] MEDS ORDERED: METOPROLOL TARTRATE 50 MG/TAB PO SCH (21:00)
[2024-08-26] MEDS ORDERED: ENOXAPARIN SODIUM 40 MG/0.4 ML SYR SC SCH (21:00)
[2024-08-27] VITALS (7 sets, daily range): BP systolic 136–190; BP diastolic 68–90
[2024-08-27 05:12] LABS: BASO% 0.1 % (0-3); HEMATOCRIT 32.8 % (39.0-50.0); HEMOGLOBIN 10.6 g/dl (14.0-18.0); IMMATURE GRANULOCYTES 0.5 % (0.0-5.0); MEAN CELL VOLUME 78.3 fL CALC (80.0-100.0); MEAN CORPUSCULAR HGB 25.3 pG CALC (26.0-32.0); MEAN CORPUSCULAR HGB CONC 32.3 g/dL CAL (32.0-36.0); MONO% 6.9 % (2-13); NEUT# 16.86 thou/uL (1.82-7.42); NEUT% 80.5 % (42-76); RED BLOOD COUNT 4.19 mill/uL (4.70-6.10); RED CELL DISTRI WIDTH 14.2 % (11.5-15.5)
[2024-08-27 05:21] LABS: ALBUMIN 2.9 g/dL (3.2-5.0); BILIRUBIN, TOTAL 0.4 mg/dL (0.2-1.3); CREATININE 1.2 mg/dL (0.7-1.3); MAGNESIUM 1.6 mg/dL (1.6-2.3); POTASSIUM 4.9 mmol/l (3.5-5.1); TOTAL PROTEIN 5.8 g/dL (6.3-8.2)
[2024-08-27] MEDS ORDERED: LEVOTHYROXINE SODIUM 75 MCG/TAB PO SCH (06:00)
[2024-08-27] MEDS ORDERED: INFLUENZA VIRUS VACCINE FLUZONE HD 2024/25 0.5 ML INJ IM SCH (09:00)
[2024-08-27] MEDS ORDERED: VANCOMYCIN HCL 1 GM in SODIUM CHLORIDE 0.9% 250 ML IV SCH (10:00)
[2024-08-27] MEDS ORDERED: CEFEPIME HYDROCHLORIDE 1 GM in SODIUM CHLORIDE 0.9% 50 ML IV SCH (11:00)
[2024-08-28 03:47] VITALS: BP 144/71
[2024-08-28 04:20] LABS: BASO% 0.1 % (0-3); EOS% 2.9 % (0-8); HEMATOCRIT 34.1 % (39.0-50.0); IMMATURE GRANULOCYTES 0.5 % (0.0-5.0); LYMPH% 8.6 % (15-41); MEAN CELL VOLUME 77.5 fL CALC (80.0-100.0); MEAN CORPUSCULAR HGB CONC 32.3 g/dL CAL (32.0-36.0); MONO% 6.6 % (2-13); NEUT# 19.46 thou/uL (1.82-7.42); NEUT% 81.3 % (42-76); RED BLOOD COUNT 4.4 mill/uL (4.70-6.10); RED CELL DISTRI WIDTH 14.5 % (11.5-15.5)
[2024-08-28 04:32] LABS: ALBUMIN 2.7 g/dL (3.2-5.0); BILIRUBIN, TOTAL 0.4 mg/dL (0.2-1.3); MAGNESIUM 1.5 mg/dL (1.6-2.3); POTASSIUM 4.8 mmol/l (3.5-5.1); TOTAL PROTEIN 5.6 g/dL (6.3-8.2)
[2024-08-28 05:00] VITALS: BP 144/71
[2024-08-28 06:46] VITALS: BP 140/81
[2024-08-28] MEDS ORDERED: Levofloxacin 750 mg Premix 150 ML IV SCH (11:00)
[2024-08-28] MEDS ORDERED: LEVOFLOXACIN500MG PO (12:07)
[2024-08-28 15:47] VITALS: BP 130/72
== END 2024-08-28 17:17 | disposition hospice, home (50) ==
LOC: ED 08:48 → ED-I 11:30 → ED 11:48 → MS2 11:49
PROVIDERS: Emergency Medicine; Nurse Practitioner Family; ADMIT Internal Medicine; ATTEND Internal Medicine
DX: N39.0 Urinary tract infection, site not specified (principal); B96.5 Pseudomonas (aeruginosa) (mallei) (pseudomallei) as the cause of diseases classified elsewhere; K86.9 Disease of pancreas, unspecified; K76.9 Liver disease, unspecified; R63.4 Abnormal weight loss; I10 Essential (primary) hypertension; E11.9 Type 2 diabetes mellitus without complications; I48.0 Paroxysmal atrial fibrillation; N40.0 Benign prostatic hyperplasia without lower urinary tract symptoms; H91.90 Unspecified hearing loss, unspecified ear; E03.9 Hypothyroidism, unspecified; Z51.5 Encounter for palliative care; Z79.84 Long term (current) use of oral hypoglycemic drugs; Z79.4 Long term (current) use of insulin; Z96.0 Presence of urogenital implants; Z87.440 Personal history of urinary (tract) infections
CPT/HCPCS: 90662; A9579; G0378; J0692; J1650